=== PATIENT | female | born 1955 ===

== ENCOUNTER 2016-11-22 17:38 | Emergency (ER) | payer OTHER ==
[2016-11-22 17:55] VITALS: BP 237/80; PULSE 66; RESP 20; TEMP 96.6; O2SAT 99
[2016-11-22] MEDS ORDERED: SODIUM CHLORIDE 0.9% FLUSH 10 ML SOL IV PRN (18:03)
[2016-11-22 18:25] LABS: APPEARANCE,URINE Slightly Cloudy; BILIRUBIN,URINE NEGATIVE (NEGATIVE); COLOR,URINE Yellow; GLUCOSE, URINE (UA) 2+ (NEGATIVE); KETONES,URINE NEGATIVE (NEGATIVE); LEUKOCYTE ESTERASE ,URINE TRACE (NEGATIVE); NITRATE,URINE POSITIVE (NEGATIVE); OCCULT BLOOD,URINE TRACE INTACT (NEG-TRACE); UROBILINOGEN,URINE 0.2 (0.2-1.0 EU)
[2016-11-22 18:31] LABS: BASOPHILS % (AUTO) 1 % (0-3); EOSINOPHILS % (AUTO) 2 % (0-9); HEMATOCRIT 37 % (35-47); MEAN CORPUSCULAR HGB CONC 35.9 gm/dl (32.0-36.0); MEAN CORPUSCULAR VOLUME 86 fL (81-99); MONOCYTES % (AUTO) 6.4 % (0-12); NEUTROPHILS % (AUTO) 55.4 % (37-80)
[2016-11-22 18:33] LABS: ALBUMIN 3.8 gm/dl (3.4-5.0); CALCIUM 8.9 mg/dl (8.5-10.1); POTASSIUM 4.2 mMol/L (3.5-5.1)
[2016-11-22] MEDS ORDERED: CIPROFLOXACIN HCL 500 MG TAB PO SCH (19:00)
[2016-11-22] MEDS ORDERED: CIPROFLOXACIN HCL 500 MG TAB PO ONE (19:07)
== END 2016-11-22 19:13 | disposition home or self-care (01) ==
LOC: ED 17:38
DX: N30.00 Acute cystitis without hematuria (principal)
CPT/HCPCS: 80053; 81001; 85025; 87077; 87088; 87186; 99282

== ENCOUNTER 2016-12-14 09:26 | Day surgery (SDC) | payer OTHER ==
[2016-12-14 10:40] VITALS: RESP 20
[2016-12-14 11:23] VITALS: TEMP 97.6
[2016-12-14 11:24] VITALS: BP 189/76; PULSE 71; O2SAT 97
== END 2016-12-14 11:45 | disposition home or self-care (01) ==
LOC: SURG 09:26
PROVIDERS: ATTEND Surgery
DX: R10.11 Right upper quadrant pain (principal); T18.4XXA Foreign body in colon, initial encounter
CPT/HCPCS: J2001; J2704

== ENCOUNTER 2016-12-28 07:04 | Emergency (ER) | payer OTHER ==
[2016-12-28 07:16] VITALS: TEMP 97.9
[2016-12-28] MEDS ORDERED: NALOXONE HYDROCHLORIDE 0.4 MG/ML SOL ONE (07:18)
[2016-12-28] MEDS ORDERED: NALOXONE HYDROCHLORIDE 0.4 MG/ML SOL IV ONE (07:19)
[2016-12-28 07:24] LABS: BASOPHILS % (AUTO) 1 % (0-3); EOSINOPHILS % (AUTO) 2 % (0-9); HEMATOCRIT 36 % (35-47); MEAN CORPUSCULAR HGB CONC 36.3 gm/dl (32.0-36.0); MEAN CORPUSCULAR VOLUME 84 fL (81-99); MONOCYTES % (AUTO) 6.2 % (0-12); NEUTROPHILS % (AUTO) 50.9 % (37-80)
[2016-12-28] MEDS ORDERED: ONDANSETRON HCL 4 MG/2 ML SOL ONE (07:28)
[2016-12-28] MEDS ORDERED: ONDANSETRON HCL 4 MG/2 ML SOL IV ONE (07:30)
[2016-12-28 07:31] LABS: APPEARANCE,URINE Slightly Cloudy; BILIRUBIN,URINE 1+ (NEGATIVE); COLOR,URINE Yellow; GLUCOSE, URINE (UA) NEGATIVE (NEGATIVE); KETONES,URINE TRACE (NEGATIVE); LEUKOCYTE ESTERASE ,URINE NEGATIVE (NEGATIVE); NITRATE,URINE NEGATIVE (NEGATIVE); OCCULT BLOOD,URINE TRACE LYSED (NEG-TRACE); UROBILINOGEN,URINE 0.2 (0.2-1.0 EU)
[2016-12-28 07:44] LABS: AMPHETAMINES NEGATIVE (NEGATIVE); ICTOTEST,URINE NEGATIVE (NEGATIVE); METHADONE NEGATIVE (NEGATIVE); OPIATES(OP13) POSITIVE (NEGATIVE); OXYCODONE(OXY) POSITIVE (NEGATIVE); PROPOXYPHENE(PPX) NEGATIVE (NEGATIVE); TRICYCLIC ANTIDEPRESSANTS NEGATIVE (NEGATIVE)
[2016-12-28 07:45] LABS: ALBUMIN 4.1 gm/dl (3.4-5.0); CALCIUM 8.9 mg/dl (8.5-10.1); POTASSIUM 3.8 mMol/L (3.5-5.1)
[2016-12-28 07:51] LABS: RBC,URINE 0-1 (0-3AV/HPF); WBC,URINE 0-3 (0-5AV/HPF)
[2016-12-28 07:52] VITALS: BP 145/106; PULSE 92; RESP 19; O2SAT 97
== END 2016-12-28 08:40 | disposition home or self-care (01) ==
LOC: ED 07:04
DX: T40.601A Poisoning by unspecified narcotics, accidental (unintentional), initial encounter (principal); R53.83 Other fatigue
CPT/HCPCS: 99284 ×3; 70450; 80053; 80305; 81001; 82150; 83690; 85025; J2310; J2405; 36415

== ENCOUNTER 2018-02-28 11:02 | Outpatient (CLI) | payer OTHER ==
[2016-12-28 07:52] VITALS: O2SAT 97
== END 2018-02-28 11:03 | disposition home or self-care (01) ==
LOC: CONVCARE 11:02
PROVIDERS: ATTEND Orthopaedic Surgery
DX: M70.61 Trochanteric bursitis, right hip (principal); M54.5 Low back pain; M53.3 Sacrococcygeal disorders, not elsewhere classified
CPT/HCPCS: 72120; 72170

== ENCOUNTER 2018-07-09 10:32 | Emergency (ER) | payer BC, OTHER ==
[2018-07-09] MEDS ORDERED: HYDRALAZINE HYDROCHLORIDE 20 MG/ML SOL IV ONE (10:54)
[2018-07-09] MEDS ORDERED: HYDRALAZINE HYDROCHLORIDE 20 MG/ML SOL ONE ×2 (10:56→15:04)
[2018-07-09] MEDS ORDERED: ONDANSETRON HCL 4 MG/2 ML SOL IV ONE (11:41)
[2018-07-09] MEDS ORDERED: ONDANSETRON HCL 4 MG/2 ML SOL ONE (11:42)
[2018-07-09 11:52] LABS: BASOPHILS % (AUTO) 1 % (0-3); EOSINOPHILS % (AUTO) 1 % (0-9); HEMATOCRIT 37 % (35-47); HEMOGLOBIN 12.5 gm/dl (12.0-15.5); LYMPHOCYTES % (AUTO) 30.8 % (10-50); MEAN CORPUSCULAR HEMOGLOBIN 27.8 pg (27.0-32.0); MEAN CORPUSCULAR HGB CONC 33.5 gm/dl (32.0-36.0); MEAN CORPUSCULAR VOLUME 83 fL (81-99); MONOCYTES % (AUTO) 5.7 % (0-12); NEUTROPHILS % (AUTO) 61.9 % (37-80)
[2018-07-09 11:57] LABS: APPEARANCE,URINE Cloudy; BILIRUBIN,URINE NEGATIVE (NEGATIVE); COLOR,URINE Yellow; GLUCOSE, URINE (UA) 1+ (NEGATIVE); KETONES,URINE TRACE (NEGATIVE); LEUKOCYTE ESTERASE ,URINE TRACE (NEGATIVE); NITRATE,URINE NEGATIVE (NEGATIVE); OCCULT BLOOD,URINE 1+ (NEG-TRACE); PH,URINE 6.5
[2018-07-09 12:08] LABS: BACTERIA 3+ (< 1+); CRYSTALS NEGATIVE (0-3 AVE/HPF); EPITHELIAL CELLS 0-2 (SQUAMOUS); RBC,URINE 0-4 (0-3AV/HPF); WBC,URINE 15-20 (0-5AV/HPF)
[2018-07-09 12:19] LABS: ALBUMIN 2.7 gm/dl (3.4-5.0); BILIRUBIN,TOTAL 0.9 mg/dl (0.2-1.0); CALCIUM 8.5 mg/dl (8.5-10.1); CARBON DIOXIDE 25.7 mEq/L (21-32); CREATININE 1.11 mg/dl (0.60-1.00); POTASSIUM 3.7 mMol/L (3.5-5.1); TOTAL PROTEIN 6.7 gm/dl (6.4-8.2); TROP I 0.047 ng/ml (0.000-0.056)
[2018-07-09] MEDS ORDERED: PROCHLORPERAZINE EDISYLATE 5 MG/ML SOL IV ONE (12:32)
[2018-07-09] MEDS ORDERED: PROCHLORPERAZINE EDISYLATE 5 MG/ML SOL ONE (12:34)
[2018-07-09] MEDS ORDERED: AZITHROMYCIN 500 MG PDS IV ONE (12:45)
[2018-07-09] MEDS ORDERED: AZITHROMYCIN 500 MG PDS IV SCH (12:45)
[2018-07-09 13:09] VITALS: TEMP 98.2
[2018-07-09] MEDS ORDERED: SODIUM CHLORIDE 0.9% 1000ML 500 ML IV ONE (13:16)
[2018-07-09] MEDS ORDERED: SODIUM CHLORIDE 0.9% 500 ML 500 ML IV ONE (13:29)
[2018-07-09] MEDS ORDERED: KETOROLAC TROMETHAMINE 30 MG/ML SOL IV ONE (13:41)
[2018-07-09] MEDS ORDERED: KETOROLAC TROMETHAMINE 30 MG/ML SOL ONE (13:42)
[2018-07-09] MEDS ORDERED: HYDRALAZINE HYDROCHLORIDE 20 MG/ML SOL IV SCH (15:00)
[2018-07-09] MEDS ORDERED: FENTANYL 100MCG/2ML SOL IV ONE (15:02)
[2018-07-09] MEDS ORDERED: FENTANYL 100MCG/2ML SOL ONE (15:04)
[2018-07-09] MEDS ORDERED: METOCLOPRAMIDE HYDROCHLORIDE 5 MG/ML SOL IM ONE (16:32)
[2018-07-09] MEDS ORDERED: METOCLOPRAMIDE HYDROCHLORIDE 5 MG/ML SOL ONE (16:33)
[2018-07-09 16:57] VITALS: BP 173/70; PULSE 109; RESP 16; O2SAT 97
== END 2018-07-09 16:45 | disposition home or self-care (01) ==
LOC: ED 10:32
DX: I16.1 Hypertensive emergency (principal); R11.2 Nausea with vomiting, unspecified; R51 Headache; R19.7 Diarrhea, unspecified; E11.9 Type 2 diabetes mellitus without complications
CPT/HCPCS: 36415; 70450; 80053; 81001; 82962; 83880; 84484; 85025; 93005; 96365; 96372; 96374; 96375; 99284; 99285; J0360; J0456; J0780; J1885; J2405; J2765; J3010

== ENCOUNTER 2018-09-18 03:23 | Emergency (ER) | payer OTHER ==
[2018-09-18] MEDS ORDERED: DEXTROSE 50% 1 VIAL SOL IV ONE ×2 (03:30→03:46)
[2018-09-18 04:00] LABS: BASOPHILS % (AUTO) 1 % (0-3); EOSINOPHILS % (AUTO) 1 % (0-9); HEMATOCRIT 31 % (35-47); HEMOGLOBIN 10.4 gm/dl (12.0-15.5); LYMPHOCYTES % (AUTO) 20.5 % (10-50); MEAN CORPUSCULAR HEMOGLOBIN 28.3 pg (27.0-32.0); MEAN CORPUSCULAR HGB CONC 34.1 gm/dl (32.0-36.0); MEAN CORPUSCULAR VOLUME 83 fL (81-99); MONOCYTES % (AUTO) 5.4 % (0-12); NEUTROPHILS % (AUTO) 72.2 % (37-80)
[2018-09-18] MEDS ORDERED: HYDRALAZINE HYDROCHLORIDE 20 MG/ML SOL ONE (04:00)
[2018-09-18] MEDS ORDERED: HYDRALAZINE HYDROCHLORIDE 20 MG/ML SOL IV SCH (04:00)
[2018-09-18] MEDS ORDERED: SODIUM CHLORIDE 0.9% FLUSH 10 ML SOL IV PRN (04:08)
[2018-09-18 04:09] VITALS: TEMP 98.2
[2018-09-18 04:15] LABS: ALBUMIN 2.9 gm/dl (3.4-5.0); BILIRUBIN,TOTAL 0.2 mg/dl (0.2-1.0); CALCIUM 8.3 mg/dl (8.5-10.1); CARBON DIOXIDE 27.4 mEq/L (21-32); CREATININE 2.03 mg/dl (0.60-1.00); POTASSIUM 3.5 mMol/L (3.5-5.1); TOTAL PROTEIN 6.8 gm/dl (6.4-8.2)
[2018-09-18 04:40] LABS: APPEARANCE,URINE Slightly Cloudy; BILIRUBIN,URINE 1+ (NEGATIVE); COLOR,URINE Yellow; GLUCOSE, URINE (UA) TRACE (NEGATIVE); KETONES,URINE TRACE (NEGATIVE); LEUKOCYTE ESTERASE ,URINE 1+ (NEGATIVE); NITRATE,URINE NEGATIVE (NEGATIVE); OCCULT BLOOD,URINE 2+ (NEG-TRACE); UROBILINOGEN,URINE 0.2 (0.2-1.0 EU)
[2018-09-18 04:43] LABS: ICTOTEST,URINE NEGATIVE (NEGATIVE)
[2018-09-18 04:48] VITALS: BP 166/84
[2018-09-18 04:49] VITALS: PULSE 67; RESP 16; O2SAT 97
[2018-09-18 04:53] LABS: CRYSTALS !+ AMORH URATES (0-3 AVE/HPF); WBC,URINE 35-40 (0-5AV/HPF)
[2018-09-18 04:54] LABS: BACTERIA 2+ (< 1+)
== END 2018-09-18 05:26 | disposition home or self-care (01) ==
LOC: ED 03:23
DX: E16.2 Hypoglycemia, unspecified (principal); I10 Essential (primary) hypertension; E11.9 Type 2 diabetes mellitus without complications; R47.81 Slurred speech; R26.81 Unsteadiness on feet
CPT/HCPCS: 36415; 70450; 80053; 81001; 82962; 85025; 87077; 87088; 87186; 93005; 96374; 99284; 99285; J0360